=== PATIENT | female | born 1940 | race Caucasian/White ===

== ENCOUNTER 2023-03-14 15:19 | Outpatient (CLI) | payer MEDICARE, BC, SELFPAY ==
[2023-03-14 17:02] LABS: Alanine Aminotransferase 33 U/L (6-35); Albumin Level 4.5 g/dL (3.5-5.1); Alkaline Phosphatase 114 U/L (38-126); Anion Gap 6 mmol/L (8-16); Aspartate Amino Transferase 41 U/L (14-36); Bilirubin,Total 0.9 mg/dL (0.2-1.3); Blood Urea Nitrogen 10 mg/dL (7-17); CRP < 0.5 mg/dL (<1.0); Calcium 9.7 mg/dL (8.4-10.2); Carbon Dioxide 32 mmol/L (22-30); Chloride 95 mmol/L (98-107); Estimated Glomerular Filt Rate > 60; Glucose 96 mg/dL (65-110); Potassium 4.4 mmol/L (3.4-5.0); Sodium 133 mmol/L (137-145); Uric Acid 2.3 mg/dL (2.5-7.5)
[2023-03-14 17:52] LABS: Erythrocyte Sedimentation Rate 17 mm/hr (0-20)
[2023-03-14 17:54] LABS: Hematocrit 39.6 % (37.0-47.0); Hemoglobin 13.4 g/dL (12.0-15.0); Mean Corpuscular HGB Conc 33.8 g/dl (32-36); Mean Corpuscular Hemoglobin 33.6 pg (26-34); Mean Corpuscular Volume 99.2 fl (80-100); Mean Platelet Volume 10.3 fl (7.4-10.4); Platelet Count Result 188 k/mm3 (150-375); Red Blood Count 3.99 M/mm3 (4.2-5.4); Red Cell Distribution Width 13.2 % (11.5-14.5); White Blood Count 5.4 K/mm3 (4.5-10.0)
== END 2023-03-14 15:20 | disposition home or self-care (01) ==
LOC: ANHLAB 15:22
PROVIDERS: PCP Family Medicine; Visit Provider Internal Medicine
DX: M10.9 Gout, unspecified (principal); M15.9 Polyosteoarthritis, unspecified; R89.9 Unspecified abnormal finding in specimens from other organs, systems and tissues
CPT/HCPCS: 36415; 80053; 84550; 85027; 85652; 86140

== ENCOUNTER 2023-09-21 15:09 | Outpatient (CLI) | payer MEDICARE, BC, SELFPAY ==
[2023-09-21 16:31] LABS: Alanine Aminotransferase 35 U/L (6-35); Albumin Level 4.5 g/dL (3.5-5.1); Alkaline Phosphatase 110 U/L (38-126); Anion Gap 9 mmol/L (8-16); Aspartate Amino Transferase 40 U/L (14-36); Blood Urea Nitrogen 9 mg/dL (7-17); Calcium 9.9 mg/dL (8.4-10.2); Carbon Dioxide 29 mmol/L (22-30); Chloride 96 mmol/L (98-107); Estimated Glomerular Filt Rate > 60; Glucose 98 mg/dL (65-110); Potassium 4.5 mmol/L (3.4-5.0); Sodium 134 mmol/L (137-145); Uric Acid 2.3 mg/dL (2.5-7.5)
[2023-09-21 16:49] LABS: Vitamin D 25 Hydroxy 98.5 ng/mL
== END 2023-09-21 15:10 | disposition home or self-care (01) ==
LOC: ANHLAB 15:12
PROVIDERS: Internal Medicine; PCP Family Medicine; Visit Provider Internal Medicine Hematology & Oncology
DX: M10.9 Gout, unspecified (principal); M19.90 Unspecified osteoarthritis, unspecified site; E55.9 Vitamin D deficiency, unspecified
CPT/HCPCS: 36415; 80053; 82306; 84550